=== PATIENT | female | born 1975 | race African-American/Black ===

== ENCOUNTER → 2019-12-28 | Outpatient (CLI) | payer OTHER ==
--- NOTE | 2019-12-28 14:45 | KCIC ---
STUDY: MRI of the right knee without contrast INDICATION: Grade 2 sprain of the MCL. Medial meniscus tear. COMPARISON: No prior MRI is available for review. TECHNIQUE: Multiplanar MR imaging of the right knee performed without the use of intravenous or intra-articular contrast. FINDINGS: Menisci: Diminutive and heterogeneous medial meniscus with fluid signal defects along the undersurface and free edge and portions of the body and posterior horn the medial meniscal body is borderline extruded from the joint line. Free edge tear of the lateral meniscus most notably along the posterior horn to the root. This is well seen on axial image 20 series 6. Cruciate ligaments: Intact. Collateral ligaments: Edema-like signal superficial and deep to the MCL complex. No focal ligament tear.. Intact lateral collateral ligamentous structures. No acute retinacular injury. Tendons: Intact extensor mechanism. No disruption of the additional tendons at the knee. Cartilage: Patellofemoral: High-grade/full-thickness chondrosis at the trochlear groove, image 19 series 8. Less pronounced chondrosis at the lower margin of the medial trochlea. Chondrosis at both medial and lateral patellar facets with subchondral edema at the lateral facet. Lateral compartment: Localized chondrosis at the weightbearing lateral tibial plateau such as seen on image 21 series 8. Medial compartment: Partial thickness chondrosis at the weightbearing medial compartment. Bones: Heterogeneous marrow signal but confined to the diametaphyseal regions and not atypical given patient age and gender. Heterogeneous T2 signal elevation at the far posteromedial aspect of the medial tibial plateau, image 12 series 8, is contiguous with complex signal abutting the posterior capsule suggesting this to represent an intraosseous extension of a ganglion cyst. Miscellaneous: Moderate knee joint effusion with synovitis and hypointense synovial thickening likely in part the sequela of previous hemarthrosis. Small amount of complex fluid distends the popliteus recess. Small but complex Hernandez's cyst. Popliteus muscle edema as favored reactive. Scattered subcutaneous edema such as along the patellar tendon. Variant popliteal artery anatomy with early branching occurring above the knee joint. IMPRESSION: 1. Diminutive and heterogeneous medial meniscus with several fluid signal defect along the undersurface and free edge of the body and posterior horn. In the setting of prior surgery a component of this could be from debridement though more recent meniscal tears are not excluded. The medial meniscal body is borderline extruded from the joint line. Either free edge tearing or prior debridement at the lateral meniscus posterior horn to the root. Correlation with prior operative reports, if available, would be useful. 2. Intact cruciate ligaments. No high-grade collateral ligamentous injury. It is difficult to determine if edema both superficial and deep to the MCL complex is reactive or secondary to grade 1 sprain. 3. Moderate knee joint effusion with relatively pronounced synovitis and synovial thickening. Complex but small Hernandez's cyst. Probable ganglion cyst adjacent to the posteromedial aspect of the medial tibial plateau with intraosseous extension (image 12 series 8). 4. Tricompartmental chondrosis, as detailed above, with the most high-grade chondral abnormality seen at the trochlear groove. Electronically signed by: CHANNING RUTHERFORD MD (12/28/2019 2:41 PM) [id number]
== END ==
LOC: KCIC MRI 12:18
PROVIDERS: ATTEND Physician Assistant
DX: S83.411A Sprain of medial collateral ligament of right knee, initial encounter (principal); S83.241A Other tear of medial meniscus, current injury, right knee, initial encounter; M25.561 Pain in right knee; M71.21 Synovial cyst of popliteal space [Baker], right knee; X58.XXXA Exposure to other specified factors, initial encounter; Y92.89 Other specified places as the place of occurrence of the external cause; Y93.89 Activity, other specified; Y99.8 Other external cause status; M25.461 Effusion, right knee
CPT/HCPCS: 73721